=== PATIENT | male | born 2000 | race Caucasian/White ===

== ENCOUNTER 2024-12-09 13:15 | Outpatient (CLI) | payer OTHER, SELFPAY ==
[2024-12-09 13:39] LABS: Hematocrit 50.9 % (40.0-54.0); Hemoglobin 17.4 g/dL (14.0-18.0); Immature Granulocyte Percent A 0.1 % (0.0-0.0); Lymphocytes Absolute Auto 2.09 K/mm3 (1.10-4.50); Mean Corpuscular HGB Conc 34.2 g/dL (32-36); Mean Corpuscular Hemoglobin 30.0 pg (27.0-31.0); Mean Corpuscular Volume 87.8 fL (78.0-102.0); Nucleated Red Blood Cells Absolute Auto 0.00 K/mm3 (0.00-0.00); Nucleated Red Blood Cells Perc 0.0 % (0-0.0); Platelet Count Result 266 K/mm3 (150-420); Red Blood Count 5.80 M/mm3 (4.70-6.10); White Blood Count 6.9 K/mm3 (4.8-10.8)
--- OUTSIDE RECORDS SUMMARY | 2024-12-09 13:59 | XMS_ITS | Clinical Summary ---
Author Organization [facility] Address [address] [place] [id number] Care Team Providers Care Cable Tower Operator Name Role Phone Kendall TOMAS MD, King Brown Primary Care Provider Allergies No known active allergies Medications VYVANSE 30 MG capsule Take 30 mg by mouth every morning. 02/16/2020 Active cholecalciferol (VITAMIN D3) 125 MCG (5000 UT) Tab Take 5,000 Units by mouth daily. Active QUEtiapine (SEROQUEL) 25 MG tabletIndicatio ns:Anxiety Take 3 tablets (75 mg total) by mouth nightly at bedtime. 270 tablet 3 11/26/2021 Active Active Problems Problem Noted Date Diagnosed Date Vitamin D deficiency 09/20/2021 PTSD (post-traumatic stress disorder) ADD (attention deficit disorder) Anxiety Depression Family History Medical History Relation Comments Hyperlipidemia Maternal Grandmother Relation Status Comments Maternal Grandmother Social History Tobacco Use Types Packs/Day Years Used Date Smoking Tobacco: Never Smokeless Tobacco: Never Tobacco Cessation:Counseling Given: No Alcohol Use Standard Drinks/Week Comments No 0 (1 standard drink = 0.6 oz pur e alcohol) AUDIT-C Answer Date Recorded Frequency of Alcohol Consumption Never 10/14/2018 Average Number of Drinks Not on file 019 Frequency of Binge Drinking Not on file 05/2018 PHQ-2 Answer Date Recorded PHQ-2 Score - If the patient scores above 3, please move on to questions 3-9 0 09/20/2021 Sex and Gender Information Value Date Recorded Sex Assigned at Not on file Legal Sex Male 8:30 PM CDT Gender Identity Not on file Sexual Orientation Not on file Last Filed Vital Signs Vital Sign Reading Time Taken Comments Blood Pressure 133/85 09/20/2021 3:18 PM CDT Pulse 82 09/20/2021 3:18 PM CDT Temperature 37.4 C (99.4 F) 09/20/2021 3:18 PM CDT Respiratory Rate 16 03/30/2020 11:00 AM INSTRUMENTATION TECHNOLOGIST Oxygen Saturation 97% 09/20/2021 3:18 PM CDT Inhaled Oxygen Concentration - - Weight 57.6 kg (127 lb) 09/20/2021 3:18 PM CDT Height 182.9 cm (6') 09/20/2021 3:18 PM CDT Body Mass Index 17.22 09/20/2021 3:18 PM CDT Plan of Treatment Health Maintenance Due Date Last Done Comments Annual Physical 2005 HPV Vaccines (1 - Male 3-dos e series) 2017 Meningococcal B Vaccine (1 o f 2 - Standard) 2018 Hepatitis C 2020 DTaP, Tdap and Td Vaccines ( 1 - Tdap) 2021 Hepatitis B Vaccines (1 of 3 - 19+ 3-dose series) 2021 COVID-19 Vaccine (1 - 2024-2 6 season) 2024 Influenza Adult (#1) 2024 Hepatitis A Vaccines Aged Out No long er eligible based on patient's age to complete this topic Meningococcal Vaccine Aged Out No ricarda jill eligible based on patient's age to complete this topic Pneumococcal Vaccine: Pediat rics (0 to 5 Years) and At-Risk Patients (6 to 49 Years) Aged Out No longer eligible b ased on patient's age to complete this topic RSV Immunizations Under 20 Months Aged Out No longer eligible based on patient's age to complete this topic Insurance [facility] Care Teams Cable Tower Operator Relationship Specialty Start Date End Date King Argueta II, MD [address] [facility] [address] [place] [id number] PCP - General FAMILY PRACTICE 09/20/21
[2024-12-09 14:00] LABS: Alanine Aminotransferase 33 U/L (6-50); Albumin Level 5.2 g/dL (3.5-5.1); Alkaline Phosphatase 94 U/L (38-126); Anion Gap 9 mmol/L (4-12); Aspartate Amino Transferase 33 U/L (17-59); Bilirubin,Total 0.8 mg/dL (0.2-1.3); Blood Urea Nitrogen 17 mg/dL (9-20); CRP < 0.5 mg/dL (<1.0); Calcium 10.3 mg/dL (8.4-10.2); Carbon Dioxide 32 mmol/L (22-30); Chloride 101 mmol/L (98-107); Estimated Glomerular Filt Rate > 60; Glucose 71 mg/dL (65-110); Lipase 111 U/L (23-300); Osmolality Calculated 293 mOsm/kg (285-295); Potassium 4.7 mmol/L (3.4-5.0); Sodium 142 mmol/L (137-145); Total Protein 7.6 g/dL (6.3-8.2)
[2024-12-09 14:28] LABS: Thyroid Stimulating Hormone Reflex 1.990 uIU/mL (0.465-4.68)
[2024-12-09 15:04] LABS: Vitamin B12 541.0 pg/mL (239-931)
[2024-12-10 15:09] LABS: Deamidated Gliadin Abs, IgA 5 units (0-19); Deamidated Gliadin Abs, IgG 3 units (0-19); Immunoglobulin A, Qn 95 mg/dL (90-386)
== END 2024-12-09 13:16 | disposition home or self-care (01) ==
LOC: CHSLAB 13:16
PROVIDERS: PCP Family Medicine; Visit Provider Family Medicine
DX: R10.9 Unspecified abdominal pain (principal); K52.9 Noninfective gastroenteritis and colitis, unspecified; E03.9 Hypothyroidism, unspecified; E53.8 Deficiency of other specified B group vitamins
CPT/HCPCS: 36415; 80053; 82607; 82746; 82784; 83013; 83690; 84443; 85025; 86140; 86231; 86258

== ENCOUNTER 2024-12-21 07:32 | Outpatient (CLI) | payer OTHER, SELFPAY ==
--- NOTE | ~2024-12-21 | CT_ITS ---
Elder Woodall EXAMINATION: CT abdomen pelvis w con COMPARISON: None HISTORY: R11.2 - Nausea with vomiting, unspecified TECHNIQUE: Axial images were obtained through the abdomen, pelvis post administration of IV contrast. Oral contrast was also administered. Coronal reconstruction images were obtained from the axial views. CT scan performed using dose optimization techniques including the following automated exposure control; adjustment of mA and/or kV; use of iterative reconstruction technique. Automatic exposure control was used to reduce radiation dose. Permanent radiation dose record is archived to PACS. FINDINGS: CT abdomen: LUNG BASES: The lung bases are clear. The visualized portions of the heart and pericardium are unremarkable. LIVER: Unremarkable, liver contours intact, no lesions. SPLEEN: Unremarkable. KIDNEYS: Right Kidney: Unremarkable. No calculi. No hydronephrosis. Left Kidney: Left kidney midpole simple cyst 1 x 1 cm. ADRENAL GLANDS: Unremarkable. PANCREAS: Unremarkable. GALLBLADDER/BILIARY: Unremarkable. No biliary dilatation. STOMACH AND ESOPHAGUS: Visualized stomach and esophagus within normal limits. BOWEL/MESENTERY: Moderate fecal content, no colitis or diverticulitis. Appendix normal. Mesentery normal. No thickening or dilated loops of small bowel. ADENOPATHY/RETROPERITONEUM: No lymphadenopathy. AORTA/VASCULATURE: Normal caliber aorta. FREE FLUID OR FREE AIR: None. CT pelvis: SOLID ORGANS/REPRODUCTIVE: Unremarkable. BLADDER: Within normal limits. OSSEOUS STRUCTURES: No acute osseous abnormality.No suspicious lesions. OVERLYING SOFT TISSUES: Unremarkable. IMPRESSION: 1. No etiology identified to explain the patient's symptoms. Follow-up suggested if symptoms persist. Reviewed, dictated and finalized at location P. AL GEAR GENERATOR IMPRESSION: 1. No etiology identified to explain the patient's symptoms. Follow-up suggeste d if symptoms persist.
--- OUTSIDE RECORDS SUMMARY | 2024-12-21 07:34 | XMS_ITS | Clinical Summary ---
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
== END 2024-12-21 07:33 | disposition home or self-care (01) ==
LOC: CHSIMG 07:32
PROVIDERS: PCP Family Medicine; Visit Provider Nurse Practitioner Family
DX: R11.2 Nausea with vomiting, unspecified (principal); K52.9 Noninfective gastroenteritis and colitis, unspecified; R10.9 Unspecified abdominal pain; G89.29 Other chronic pain
CPT/HCPCS: 74177; Q9967

== ENCOUNTER 2025-01-22 12:42 | Emergency (ER) | payer OTHER, SELFPAY ==
--- NOTE | ~2025-01-22 | XR_ITS ---
Examination: XR clavicle LT, XR shoulder LT min 2V Clinical History: Injury, posterior Lt. shoulder pain/ limited ROM; worsening Comparison: None Technique: 2 views left clavicle, 3 views left shoulder Findings/impression: Left clavicle: 1. No fracture. Left shoulder: 1. No fracture or dislocation. Reviewed, dictated and finalized at location R. FIC RATE CLERK
[2025-01-22 12:56] VITALS: BP 118/86; PULSE 86; RESP 16; TEMP 36.4; O2SAT 99
[2025-01-22] MEDS: KETOROLAC (*BKC) 60 MG/2 ML VIAL IM (13:14)
--- NOTE | 2025-01-22 13:38 | ED.UPPEXIN ---
HPI - Extremity Injury (Upper) General Chief Complaint: Extremity Injury, Upper Stated Complaint: Left shoulder injury Time Seen by Provider: 01/22/25 13:02 Source: patient and family Mode of arrival: ambulatory Limitations: no limitations History of Present Illness HPI narrative: This is a 24-year-old male with no significant past medical history injured his left shoulder and clavicle clavicle after he was doing some heavy lifting and the box slid onto his left shoulde, currently rating his pain about a 6/10 there is no deformity no bruising no swelling no other injuries noted. Ata GATES complaint: injury to: left Onset (ago): hour(s) Other Extremity Injury: Left: shoulder Handedness: right Place: work Severity: moderate Severity scale (1-10): 6 Relieving factors: immobilization Exacerbating factors: movement of extremity Associated symptoms: denies other symptoms Related Data Allergies Allergy/AdvReac Type Severity Reaction Status Date / Time No Known Allergies Allergy Verified 01/22/25 12:55 Review of Systems Review of Systems: All systems reviewed & are unremarkable except as noted in HPI and below PMFSH Past Medical History Medical History Adjustment disorder with anxiety ADHD, predominantly inattentive type Family History Family History Other Cerebrovascular accident Diabetes mellitus Family history of malignant neoplasm of male breast Hypertension Social History Social History Smoking status: Never smoker Alcohol intake: never Substance use: never Exam Const: General: healthy appearing Nutritional Appearance: well nourished Orientation/consciousness: patient oriented x3 Limitations: no limitations Neck: Neck: normal visual inspection, no lymphadenopathy and no meningeal signs Chest: Chest palpation & inspection: normal inspection of the chest Resp: Effort & Inspection: normal respiratory effort Auscultation: clear to auscultation bilaterally Cardio: Rate: regular rate Rhythm: regular rhythm Skin: General skin exam: normal color Rashes: no rashes Wounds: no wounds Neuro: General: patient oriented x3, moves all extremities and no meningeal signs Extrem: Other: Left shoulder and clavicle pain with movement palpation Course Course Emergency Course: Medical decision making narrative: The patient was evaluated by myself in the ED. History obtained from patient and is independent historian. Physical exam performed witnessed by nurse. X-rays performed showed no acute fractures Patient received 60mg IM Toradol and after reassessment pain has improved. Repeat assessment: Patient is doing well on repeat exam with no acute distress Symptoms improved since arrival to the emergency department Repeat vitals are stable patient agrees with discussion after shared medical decision-making agrees with discharge All questions answered the patient's satisfaction Advised follow-up in 3 to 5 days with primary care physician. Vital Signs Vital signs: Vital Signs Temperature 36.4 C L 01/22/25 12:56 Pulse Rate 86 01/22/25 12:56 Respiratory Rate 16 01/22/25 12:56 Blood Pressure 118/86 01/22/25 12:56 Pulse Oximetry 99 01/22/25 12:56 Temperature 36.4 C L 01/22/25 12:56 Pulse Rate 86 01/22/25 12:56 Respiratory Rate 16 01/22/25 12:56 Blood Pressure 118/86 01/22/25 12:56 Pulse Oximetry 99 01/22/25 12:56 MDM Differential Diagnosis Differential Diagnosis: Shoulder strain Critical Care Time Critical Care Time Critical Care Time: No Discharge Plan Discharge Clinical Impression: Left shoulder strain Patient Disposition: Home Condition: Stable Instructions: Antibiotic Form, Muscle Strain (ED) Additional Instructions: Advised to take medication as prescribed and follow with primary care physician if symptoms persist or worsen. Patient Language: Divehi Prescriptions: New naproxen 500 mg tablet 500 mg PO BID PRN (Reason: pain) Qty: 14 0RF No Action ondansetron 4 mg tablet,disintegrating 4 mg PO Q8H PRN (Reason: nausea and vomiting) Qty: 30 0RF meloxicam 15 mg tablet 15 mg PO DAILY Qty: 7 0RF Follow-up/Referrals: Duncan Macias DO [Primary Care Provider, [facility]] Time of Disposition: 13:52
== END 2025-01-22 14:04 | disposition home or self-care (01) ==
PROVIDERS: Emergency Provider Emergency Medicine; PCP Family Medicine
DX: S46.912A Strain of unspecified muscle, fascia and tendon at shoulder and upper arm level, left arm, initial encounter (principal); X50.0XXA Overexertion from strenuous movement or load, initial encounter
CPT/HCPCS: 73000; 73030; 96372; 99283; J1885